=== PATIENT | female | born 1965 | race Caucasian/White ===

== ENCOUNTER → 2019-04-19 | Day surgery (SDC) | payer OTHER ==
[~2019-04-19] MED LIST: FENTANYL CITRATE/PF 100MCG/2 ML INJ ONE; GLUCAGON FOR INJ 1 MG VIAL ONE; LEVOCETIRIZINE D5 MG PO; LIDOCAINE HCL 2% LOCAL INJ 5 ML SDV VIAL INJ ONE; METOCLOPRAMIDE HCL 10 MG/2ML VIAL ONE; MIDAZOLAM HCL 2 MG/2 ML VIAL ONE; MONTELUKAST SOD10 MG PO; NASAL SPRAY30 M1; ONDANSETRON HCL INJ 2MG/ML 2ML 2 MG/ML VIAL ONE; PROPOFOL IV EMULSION 10 MG/ML 50 ML VIAL ONE; TRIAMTERENE-HC1 EAC2 PO; ZORVOLEX PO
--- OUTSIDE RECORDS SUMMARY | 2019-04-19 06:20 | XMS REPORT ---
Author Author [facility] Address Unknown Phone Unavailable Care Team Providers Care Travel Service Consultant Name Role Phone ELISEO CONKLIN MAITE Unavailable Payers Payer Name Policy Type Policy Number Effective Date Expiration Date Problems This patient has no known problems. Allergies, Adverse Reactions, Alerts Allergy Name Allergy Type Status Severity Reaction(s) Onset Date Inactive Date Treating Clinician Comments latex DA Active U 2019-02-14 00:00:00 latex DA Active U 2007-07-17 00:00:00 No Known Contrast Allergies DA Active U 2007-07-17 00:00:00 No Known Drug Allergies DA Active U 2007-07-17 00:00:00 No Known Food Allergies DA Active U 2007-07-17 00:00:00 No Known Other Allergies DA Active U 2007-07-17 00:00:00 Medications This patient has no known medications. Encounters Start Date/Time End Date/Time Encounter Type Admission Type Attending Clinicians Care Facility Care Department Encounter ID 2017-04-28 12:56:00 2017-04-28 12:56:00 Outpatient C [facility] MED [id number] Results Test Description Test Time Test Comments Text Results Atomic Results Result Comments D-DIMER 2019-02-15 00:22:00 D-DIMER (test code=DDIMER) < 100 ng/ml < 600 BASIC METABOLIC [id number] 23:54:00* Test Item Value Reference Range Comments SODIUM (test code=NA) 139 mmol/L 128-145 POTASSIUM (test code=K) 3.7 mmol/L 3.5-5.1 CHLORIDE (test code=CL) 102.0 mmol/L 98-107 CARBON DIOXIDE (test code=CO2) 27.7 mmol/L 22-29 ANION GAP (test code=GAP) 13 mmol/L 10-20 GLUCOSE (test code=GLU) 123 mg/dL 70-110 BLOOD UREA NITROGEN (test code=BUN) 12 mg/dL 7-22 GLOMERULAR FILTRATION RATE (test code=GFR) > 60 mL/min >=60 Estimated GFR by using Modified MDRD formula.Chronic kidney disease is defined as either kidney damageor GFR <60 mL/min/1.73 m2 for >3 months. CREATININE (test code=CREAT) 0.78 mg/dL 0.55-1.3 BUN/CREATININE RATIO (test code=BUN/CREA) 15.4 10-20 CALCIUM (test code=CA) 10.4 mg/dL 8.0-10.5 HEPATIC FUNCTION [id number] 23:54:00* Test Item Value Reference Range Comments TOTAL PROTEIN (test code=PROT) 6.6 gram/dL 6.1-7.8 ALBUMIN (test code=ALB) 3.7 g/dL 3.3-4.4 GLOBULIN (test code=GLOB) 2.9 G/DL 1-10 ALBUMIN/GLOBULIN RATIO (test code=A/G) 1.3 0.75-1.50 BILIRUBIN TOTAL (test code=BILT) 0.50 mg/dL 0.2-1.2 BILIRUBIN DIRECT (test code=BILD) 0.30 mg/dL 0.0-0.30 SGOT/AST (test code=AST) 159 U/L 10-39 SGPT/ALT (test code=ALT) 72 U/L 10-69 ALKALINE PHOSPHATASE TOTAL (test code=ALKP) 118 U/L 50-139 CPK-MB [id number] 23:54:00* Test Item Value Reference Range Comments CREATINE KINASE (CK) (test code=CK) 97 U/L 26-192 CKMB (test code=CKMBT) 1.3 ng/mL 0.0-5.0 RELATIVE % INDEX (test code=REL%) 1.34 % 0.00-2.50 "If the total CK is elevated, the CKMB Fraction must beinterpreted as a Relative % Index, Normal is less than 2.5%"NOTE: Relative % Index is not valid with a normal total CK. [id number] 23:54:00* Test Item Value Reference Range Comments TROPONIN-I (test code=TROPI) <0.015 ng/mL 0.00-0.056 B-TYPE NATRIURETIC [id number] 23:50:00* Test Item Value Reference Range Comments B-TYPE NATRIURETIC PEPTIDE (test code=BNP) < 5.0 pg/mL 0-100 BASIC METABOLIC [id number] 23:42:00* Test Item Value Reference Range Comments SODIUM (test code=NA) 139 mmol/L 128-145 POTASSIUM (test code=K) 3.7 mmol/L 3.5-5.1 CHLORIDE (test code=CL) 102.0 mmol/L 98-107 CARBON DIOXIDE (test code=CO2) 27.7 mmol/L 22-29 ANION GAP (test code=GAP) 13 mmol/L 10-20 GLUCOSE (test code=GLU) 123 mg/dL 70-110 BLOOD UREA NITROGEN (test code=BUN) 12 mg/dL 7-22 GLOMERULAR FILTRATION RATE (test code=GFR) > 60 mL/min >=60 Estimated GFR by using Modified MDRD formula.Chronic kidney disease is defined as either kidney damageor GFR <60 mL/min/1.73 m2 for >3 months. CREATININE (test code=CREAT) 0.78 mg/dL 0.55-1.3 BUN/CREATININE RATIO (test code=BUN/CREA) 15.4 10-20 CALCIUM (test code=CA) 10.4 mg/dL 8.0-10.5 HEPATIC FUNCTION [id number] 23:42:00* Test Item Value Reference Range Comments TOTAL PROTEIN (test code=PROT) gram/dL 6.4-8.2 ALBUMIN (test code=ALB) g/dL 3.4-5.0 GLOBULIN (test code=GLOB) G/DL 1-10 ALBUMIN/GLOBULIN RATIO (test code=A/G) 0.75-1.50 BILIRUBIN TOTAL (test code=BILT) mg/dL 0.0-1.0 BILIRUBIN DIRECT (test code=BILD) mg/dL 0.0-0.20 SGOT/AST (test code=AST) IUnit/L 15-37 SGPT/ALT (test code=ALT) IUnit/L 12-78 ALKALINE PHOSPHATASE TOTAL (test code=ALKP) IUnit/L 45-117 CPK-MB [id number] 23:42:00* Test Item Value Reference Range Comments CREATINE KINASE (CK) (test code=CK) U/L 26-192 CKMB (test code=CKMBT) ng/mL 0.0-5.0 RELATIVE % INDEX (test code=REL%) % 0.00-2.50 [id number] 23:42:00* Test Item Value Reference Range Comments TROPONIN-I (test code=TROPI) ng/mL 0-0.045 CBC W/O [id number] 23:33:00* Test Item Value Reference Range Comments WHITE BLOOD CELL (test code=WBC) 9.7 K/mm3 4.5-12.5 RED BLOOD CELL (test code=RBC) 4.44 mill/mm3 3.7-5.2 HEMOGLOBIN (test code=HGB) 10.8 gram/dL 11.5-15.5 HEMATOCRIT (test code=HCT) 34.6 % 36.0-46.0 MEAN CELL VOLUME (test code=MCV) 77.9 fL 80-98 MEAN CELL HGB (test code=MCH) 24.3 picogram 27.0-33.0 MEAN CELL HGB CONCETRATION (test code=MCHC) 31.2 gram/dL 33.0-36.0 RED CELL DISTRIBUTION WIDTH (test code=RDW) 16.0 % 11.6-16.2 RED CELL DISTRIBUTION WIDTH SD (test code=RDW-SD) 45.1 fL 37.0-51.0 PLATELET COUNT (test code=PLT) 273 K/mm3 150-450 MEAN PLATELET VOLUME (test code=MPV) 9.8 fL 6.7-11.0 - XR CHEST 1 [id number] 23:32:00 FAX: Jose Cruz DO [place]: [address]: PRE Name: AMAN THORNTON [facility] : [birth year] Age/S: 53/F [address] Unit #: [id number] Loc: [facility] [address] Phys: Jose Cruz DO [place], [place] [address] Acct: [id number] Dis Date: Status: PRE ER PHONE #: Exam Date: 02/14/2019 7173 FAX #: Reason: CHEST PAIN EXAMS: CPT CODE: [id number] XR CHEST 1 V 58963 LOCATION: Q15 HISTORY: 53-year-old female with chest pain. COMMENT: A fr ontal chest radiograph was obtained at the bedside at 11:21 p.m. T he lungs are clear and well-aerated. The cardiac silhouette, luci, and med iastinum are within normal limits. The skeleton is intact, and the surroun ding soft tissues are unremarkable. IMPRESSION: Unremarkable portable examination of the chest. Electron ically Signed by Cornelius Winter M.D. on 02/14/2019 at 2332 Reported and signed by: Cornelius cristina M.D. CC: AmrikshadiaepiJose Technologist: Bridgette Carter [email or web address] Date/Time/By: 02/14/2019 (7034) : By: [email or web address] Orig Print D/T: S: 02/14/2019 (7445) PAGE 1 Sign ed Report
[2019-04-19 11:35] VITALS: BP 127/80
--- NOTE | 2019-04-19 11:40 | Operative Report ---
DATE OF PROCEDURE: 04/19/2019 SURGEON: Anirudh Weaver MD PROCEDURE: Esophagogastroduodenoscopy with biopsies and colonoscopy with polypectomy and biopsies. ADDITIONAL REFERRING PHYSICIAN: Dr. Sofi Marinelli. INDICATIONS FOR EGD: Heartburn, indigestion, anemia. INDICATIONS FOR COLONOSCOPY: Colorectal cancer screening, anemia. MEDICATION: The patient was done under MAC, please see anesthesiologist's note. PROCEDURE IN DETAIL: With the patient in left lateral decubitus position, flexible fiberoptic Olympus gastroscope was introduced into the esophagus under direct visualization without any difficulty. Erosions were noted in the distal esophagus. The GE junction was friable and somewhat nodular and biopsies were obtained. The scope was then advanced with ease into the stomach and the patient is apparently status post Misael-en-Y. Anastomosis at 5 cm from the GE junction appeared intact. The efferent loop was patent. There were no marginal ulcers. A minute polyp was noted in the gastric stump and that was partially excised with a cold biopsy forceps. Also, biopsies were obtained from the gastric stump. The scope was retroflexed and postoperative changes were noted. The scope was then straightened out, it was subsequently withdrawn. The patient tolerated procedure well. IMPRESSION: 1. Erosive distal esophagitis. 2. GE junction somewhat nodular, friable, biopsied. 3. Status post Misael-en-Y, anastomosis intact. 4. Polyp, hyperplastic appearing, gastric stump, partially excised with the cold biopsy forceps. PLAN: Follow up histology. Initiate Protonix 40 mg one p.o. q.a.m. a.c. PROCEDURE IN DETAIL: The patient was then turned around. After adequate lubrication of the anal canal, a flexible fiberoptic Olympus colonoscope was inserted into the rectum with ease and advanced all the way to the cecum. Mucosa overlying the cecum appeared to be within normal limits. A single diverticulum was noted in the cecum. The ileocecal valve was intubated and the scope was advanced into the terminal ileum. Biopsies were obtained from the terminal ileum. The scope was then withdrawn back into the colon. It was then withdrawn slowly and other than for scattered diverticular disease, ascending, transverse and descending appeared to be within normal limits. An approximately 5 mm sessile polyp was snared from the sigmoid colon. The rectum appeared to be within normal limits. The scope was then retroflexed into the distal rectum and small internal hemorrhoids were noted, none of which was actively bleeding. The scope was then straightened out, it was subsequently withdrawn. The patient tolerated procedure well. IMPRESSION: 1. Diverticulosis. 2. Sigmoid colon polyp approximately 5 mm in size, removed per snare electrocautery. 3. Internal hemorrhoids, none actively bleeding. PLAN: Follow up histology. Initiate high-fiber, low-fat diet. Initiate high-fiber supplement. The patient might benefit from a small bowel series to complete workup. The patient might benefit from a followup colonoscopy in 5 years. MD AUGUST Barahona/TOBY /[id number] cc: MD Sofi Cuenca [place]
== END | disposition home or self-care (01) ==
LOC: OR 06:11
PROVIDERS: ATTEND Internal Medicine Gastroenterology
DX: D64.9 Anemia, unspecified (principal); D12.5 Benign neoplasm of sigmoid colon; K31.7 Polyp of stomach and duodenum; K22.10 Ulcer of esophagus without bleeding; K21.9 Gastro-esophageal reflux disease without esophagitis; K22.8 Other specified diseases of esophagus; Z98.84 Bariatric surgery status; K57.30 Diverticulosis of large intestine without perforation or abscess without bleeding; K64.8 Other hemorrhoids; I10 Essential (primary) hypertension; Z91.040 Latex allergy status; Z68.33 Body mass index [BMI] 33.0-33.9, adult; Z80.0 Family history of malignant neoplasm of digestive organs
CPT/HCPCS: 43239; 45385; J1610; J2001; J2250; J2405; J2704; J2765; 45380; J3010

== ENCOUNTER → 2019-05-02 | Outpatient (CLI) | payer OTHER ==
[~2019-05-02] MED LIST changes: -FENTANYL CITRATE/PF 100MCG/2 ML INJ ONE; -GLUCAGON FOR INJ 1 MG VIAL ONE; -LIDOCAINE HCL 2% LOCAL INJ 5 ML SDV VIAL INJ ONE; -METOCLOPRAMIDE HCL 10 MG/2ML VIAL ONE; -MIDAZOLAM HCL 2 MG/2 ML VIAL ONE; -ONDANSETRON HCL INJ 2MG/ML 2ML 2 MG/ML VIAL ONE; -PROPOFOL IV EMULSION 10 MG/ML 50 ML VIAL ONE
--- NOTE | 2019-05-02 09:19 | Diagnostic Imaging Report ---
PROCEDURE: SMALL BOWEL SERIES TIME: 0.4 MINUTES Air Kerma: 12.0 mGy Comparison: None. Indications: ANEMIA. Patient reports history of gastric bypass approximately 15 years ago Technique: Small bowel follow through exam was performed using oral barium. Preliminary image was obtained before administration of contrast and serial overhead images were obtained after administration of oral barium. Fluoroscopy was performed and spot images were obtained. Findings: Educator Senior Clinical: Educator Senior Clinical radiograph shows a nonobstructive bowel gas pattern. Radiopaque suture material in the midepigastric region with metallic clips in the expected region of the gallbladder fossa. Regional skeletal structures intact. No mass effect or organomegaly. Right hemipelvic surgical clips. SMALL BOWEL FOLLOW THROUGH: Small bowel follow-through shows expected changes of gastric bypass with brisk egress of contrast from the gastric pouch into the small bowel. Small bowel loops are normal in caliber and distribution. Spot compression views of the terminal ileum are normal. Peristalsis, as observed under fluoroscopy, is normal. The transit time was normal. IMPRESSION: Post surgical changes of gastric bypass; otherwise unremarkable fluoroscopic small bowel series. Dictated by: Alex Delacruz M.D. on 05/02/2019 at 9:22 Electronically approved by: Alex Delacruz M.D. on 05/02/2019 at 9:22
== END ==
LOC: DX 06:06
PROVIDERS: ATTEND Internal Medicine Gastroenterology
DX: D64.9 Anemia, unspecified (principal)
CPT/HCPCS: 74250